=== PATIENT | female | born 1940 | race Caucasian/White ===

== ENCOUNTER 2017-10-23 09:42 | Day surgery (SDC) | payer OTHER, SELFPAY ==
[~2017-10-23] VITALS: Ht 165.1 cm; Wt 64.4 kg
[~2017-10-23 09:42] MED LIST: ALLEGRA ALLERGY PO; ASPI325; ATEN50 PO; ATENOLOL-? DOSE; Acetaminophen-1 EAC1 PO; Atenolol50 MG PO; B Complex1 EAC2 PO; BUME1 PO; CALMAGZIN PO; CHLO25B PO; CREON DR 12,001 EACH PO; Chondroitin Su250 MG PO; DIPATRL; DIPH50 PO; DULO60; FISH1000; FISH1000 PO; FLUTICASONE PROPIONA; FURO100EL; GLUC500 PO; Glucosamine 1,1 EACH PO; HYDACE10B PO; HYDACE5 PO; HYDCHL25 PO; LEVSOD25; LEVSOD50; LOSA50 PO; LOSARTAN POTASS50 MG PO; MECL25 PO; MELO7.5 PO; METO100ER PO; Norco 5-325 Ta1 EACH PO; OXYACE5T PO; Omeprazole20 M1 PO; POTCHL20ER PO; PROC5 PO; TELM80; Zofran Odt4 MG SL; [UNRECOGNIZED DRUG - OTHER]; [UNRECOGNIZED DRUG - OTHER] PO; [UNRECOGNIZED DRUG - REMARK]; [UNRECOGNIZED DRUG - REMARK]
[2017-10-23] MEDS ORDERED: CHOL10002 (10:27)
[2017-10-23] MEDS ORDERED: B-100 COMPLEX100 MG (10:27)
[2017-10-23] MEDS ORDERED: Calcium Magnes1 EAC1 (10:27)
[2017-10-23] MEDS ORDERED: DIPH50 (10:28)
[2017-10-23] MEDS ORDERED: Zantac150 MG (10:28)
[2017-10-23] MEDS ORDERED: PSEU120ER (10:28)
== END 2017-10-23 11:54 | disposition home or self-care (01) ==
LOC: ORSCSDS 09:42
PROVIDERS: Internal Medicine Gastroenterology
PROC: 0D798ZZ Dilation of Duodenum, Via Natural or Artificial Opening Endoscopic (ICD-10-PCS; principal; 2017-10-23 11:15)
PROC: 0DBE8ZX Excision of Large Intestine, Via Natural or Artificial Opening Endoscopic, Diagnostic (ICD-10-PCS; principal; 2017-10-23 11:15)
PROC: 0DB98ZX Excision of Duodenum, Via Natural or Artificial Opening Endoscopic, Diagnostic (ICD-10-PCS; principal; 2017-10-23 11:15)
PROC: 0DBK8ZX Excision of Ascending Colon, Via Natural or Artificial Opening Endoscopic, Diagnostic (ICD-10-PCS; principal; 2017-10-23 11:15)
DX: R63.4 Abnormal weight loss (principal); K21.9 Gastro-esophageal reflux disease without esophagitis; K31.5 Obstruction of duodenum; K29.80 Duodenitis without bleeding; D12.2 Benign neoplasm of ascending colon; K64.8 Other hemorrhoids; K57.30 Diverticulosis of large intestine without perforation or abscess without bleeding; R19.7 Diarrhea, unspecified; I10 Essential (primary) hypertension; E78.5 Hyperlipidemia, unspecified; E03.9 Hypothyroidism, unspecified; Z87.891 Personal history of nicotine dependence; Z79.899 Other long term (current) drug therapy
CPT/HCPCS: 88305; C1726; J7120

== ENCOUNTER → 2017-11-16 | Outpatient (CLI) | payer OTHER ==
[~2017-11-16] MED LIST changes: +B-100 COMPLEX100 MG; +CHOL10002; +Calcium Magnes1 EAC1; +DIPH50; +PSEU120ER; +Zantac150 MG
[2017-11-16 13:03] LABS: Calcium, Blood 8.8 mg/dL (8.5-10.1); Creatinine, Blood 1.25 mg/dL (0.40-1.00); Potassium, Blood 4.2 mmol/L (3.5-5.5)
== END | disposition home or self-care (01) ==
LOC: LAB 11:16 → LAB SHORT 11:16
PROVIDERS: Internal Medicine
DX: N25.9 Disorder resulting from impaired renal tubular function, unspecified (principal)
CPT/HCPCS: 80048

== ENCOUNTER → 2018-05-22 | Outpatient (CLI) | payer OTHER ==
[~2018-05-22] MED LIST changes: +Ferus150 MG; +Flonase 0.05% N16 GM; +Gas-X125 MG PO; -Zantac150 MG; +Zantac150 MG PO
[2018-05-22 19:58] LABS: Influenza A Negative (NEGATIVE); Influenza B Negative (NEGATIVE)
== END | disposition home or self-care (01) ==
LOC: LAB SHORT 17:54 → LAB 17:54
PROVIDERS: Internal Medicine
DX: R09.81 Nasal congestion (principal)
CPT/HCPCS: 87804

== ENCOUNTER → 2019-06-14 | Outpatient (CLI) | payer OTHER ==
[2019-06-14 12:59] LABS: BASOPHILS ABSOLUTE AUTO 0.04 K/mm3 (0.00-0.23); BASOPHILS PERCENT AUTO 1 % (0-2); EOSINOPHILS ABSOLUTE AUTO 0.05 K/mm3 (0.00-0.68); EOSINOPHILS PERCENT AUTO 1 % (0-6); Hematocrit 38.8 % (33.0-51.0); Hemoglobin 13.6 g/dL (11.5-16.0); IMMATURE GRAN ABSOLUTE AUTO 0.01 K/mm3 (0.00-0.10); IMMATURE GRAN PERCENT AUTO 0 % (0-1); LYMPHOCYTES ABSOLUTE AUTO 1.26 K/mm3 (0.84-5.20); LYMPHOCYTES PERCENT AUTO 23 % (21-46); MONOCYTES ABSOLUTE AUTO 0.31 K/mm3 (0.16-1.47); MONOCYTES PERCENT AUTO 6 % (4-13); Mean Corpuscular HGB 29.6 pg (26.0-34.0); Mean Corpuscular HGB Conc 35.1 g/dL (31.5-36.5); Mean Corpuscular Volume 85 fL (80-100); Mean Platelet Volume 9.2 fL (9.1-12.4); NEUTROPHILS ABSOLUTE AUTO 3.89 K/mm3 (1.96-9.15); NEUTROPHILS PERCENT AUTO 70 % (41-73); Platelet Count 378 K/mm3 (150-400); RDW Coefficient Variation 14.5 % (11.7-14.2); RDW Standard Deviation 44.3 fL (35.1-46.3); Red Blood Cell Count 4.59 M/mm3 (3.80-5.20); White Blood Cell Count 5.56 K/mm3 (4.00-11.30)
[2019-06-14 13:09] LABS: Alanine Aminotransfer (ALT/SGP 29 U/L (12-78); Albumin, Blood 4.1 g/dL (3.4-5.0); Albumin/Globulin Ratio 1.1 (0.8-1.8); Alk Phos 79 U/L (40-126); Anion Gap 11 mmol/L (6-16); Aspartate Aminotrans (AST/SGOT 26 U/L (12-37); Bilirubin, Total 0.6 mg/dL (0.1-1.0); Blood Urea Nitrogen 17 mg/dL (8-24); Bun/Creatinine Ratio 11.7 (12.0-20.0); CO2, Blood 26 mmol/L (21-32); Calcium, Blood 9.1 mg/dL (8.5-10.1); Chloride, Blood 92 mmol/L (98-108); Creatinine, Blood 1.45 mg/dL (0.40-1.00); Globulin, Blood 3.7 g/dL (2.2-4.0); Glomerular Filtration Rate 35 (60-); Glucose, Blood 123 mg/dL (70-99); Potassium, Blood 4.1 mmol/L (3.5-5.5); Sodium, Blood 129 mmol/L (136-145); Total Protein, Blood 7.8 g/dL (6.4-8.2)
[2019-06-14 13:13] LABS: Troponin I <0.017 ng/mL (0.000-0.040)
== END | disposition home or self-care (01) ==
LOC: LAB SHORT 12:53 → LAB EV 12:53
PROVIDERS: Physician Assistant Surgical
DX: R07.89 Other chest pain (principal); R06.02 Shortness of breath
CPT/HCPCS: 80053; 83880; 84484; 85025; 85379

== ENCOUNTER 2019-10-03 10:24 | Observation (INO) | payer OTHER ==
[~2019-10-03] VITALS: Ht 165.1 cm; Wt 75.3 kg
[~2019-10-03 10:24] MED LIST changes: -Acetaminophen-1 EAC1 PO; -B-100 COMPLEX100 MG; -CHOL10002; -Calcium Magnes1 EAC1; -LEVSOD50; -METO100ER PO
[2019-10-03 10:45] LABS: BASOPHILS ABSOLUTE AUTO 0.05 K/mm3 (0.00-0.23); BASOPHILS PERCENT AUTO 1 % (0-2); EOSINOPHILS ABSOLUTE AUTO 0.05 K/mm3 (0.00-0.68); EOSINOPHILS PERCENT AUTO 1 % (0-6); Hematocrit 41.8 % (33.0-51.0); Hemoglobin 14.1 g/dL (11.5-16.0); IMMATURE GRAN ABSOLUTE AUTO 0.02 K/mm3 (0.00-0.10); IMMATURE GRAN PERCENT AUTO 0 % (0-1); LYMPHOCYTES ABSOLUTE AUTO 1.82 K/mm3 (0.84-5.20); LYMPHOCYTES PERCENT AUTO 21 % (21-46); MONOCYTES ABSOLUTE AUTO 0.58 K/mm3 (0.16-1.47); MONOCYTES PERCENT AUTO 7 % (4-13); Mean Corpuscular HGB 29.4 pg (26.0-34.0); Mean Corpuscular HGB Conc 33.7 g/dL (31.5-36.5); Mean Corpuscular Volume 87 fL (80-100); Mean Platelet Volume 9.2 fL (9.1-12.4); NEUTROPHILS ABSOLUTE AUTO 6.34 K/mm3 (1.96-9.15); NEUTROPHILS PERCENT AUTO 72 % (41-73); Platelet Count 310 K/mm3 (150-400); RDW Standard Deviation 41.5 fL (35.1-46.3); White Blood Cell Count 8.86 K/mm3 (4.00-11.30)
[2019-10-03 11:02] LABS: Albumin, Blood 3.7 g/dL (3.4-5.0); Bilirubin, Total 0.8 mg/dL (0.1-1.0); Calcium, Blood 9.9 mg/dL (8.5-10.1); Creatinine, Blood 1.58 mg/dL (0.40-1.00); Globulin, Blood 3.7 g/dL (2.2-4.0); Potassium, Blood 3.9 mmol/L (3.5-5.5); Total Protein, Blood 7.4 g/dL (6.4-8.2)
[2019-10-03 11:13] LABS: Source, Urine Clean Catch
[2019-10-03 11:18] LABS: Appearance, Urine Clear (Clear); Bilirubin, Urine Neg (Neg); Blood, Urine Neg (Neg); Color, Urine Yellow (P-Yellow); Glucose Qualitative, Urine Neg (Neg); Ketones, Urine 1+ (Neg); Leukocyte Esterase, Urine Neg (Neg); Nitrite, Urine Neg (Neg); Protein, Urine Neg (Neg); Specific Gravity, Urine 1.015 (1.003-1.022); Urobilinogen, Urine NORM (Normal)
[2019-10-03] MEDS ORDERED: EUTHYROX50 MCG PO (12:51)
[2019-10-03] MEDS ORDERED: METO50ER PO (12:52)
[2019-10-03] MEDS ORDERED: CHLO25B PO (12:53)
[2019-10-03] MEDS ORDERED: POTA10T PO (12:54)
[2019-10-03] MEDS ORDERED: TYLECOD3 PO (12:54)
[2019-10-03] MEDS ORDERED: LOSA50 PO (12:55)
[2019-10-03] MEDS ORDERED: Omeprazole20 M1 PO (12:56)
[2019-10-03] MEDS ORDERED: MAGNESIUM OXID500 MG PO (13:26)
[2019-10-03] MEDS ORDERED: VITAMIN D325 MC3 PO (13:27)
[2019-10-03] MEDS ORDERED: Vitamin B Comple1 EA PO (13:29)
[2019-10-03] MEDS ORDERED: BENADRYL25 MG PO (13:29)
[2019-10-03] MEDS ORDERED: CALCIUM MAGNES1 EACH PO (13:30)
--- NOTE | 2019-10-03 18:41 | NUR ---
SHIFT SUMMARY PT IS A NEW ER ADMISSION THIS AFTERNOON. PT IS ALERT AND ORIENTED AND CALLS APPROPRIATELY. IVF INFUSING WITHOUT DIFFIUCLTY. PT TRIED TO EAT AN EGG AND STARTED VOMITING AND HAVING ABDOMINAL PAIN. THIS RN MEDICATED FOR PAIN AND NAUSEA AND PT REPORTS NO NAUSEA/PAIN SINCE. THIS RN HELD DINNER TRAY AND ENCOURAGED PT TO DO CLEAR LIQUIDS. BP WAS ELEVATED-HYDRALAZINE ADMINISTERED AND PT'S BP DOWN WNL. SEE VITALS RECORDED. NO ACUTE CHANGES AT THIS TIME. PT HAS NO COMPLAINTS OF CHEST PAIN. CALL LIGHT IN REACH. WILL CONTINUE TO MONITOR AND REPORT TO ONCOMING RN.
--- NOTE | 2019-10-03 19:30 | NUR ---
ASSUMED CARE. NATE STILL IS HAVING NAUSEA. WITH MILD DISTENSION, TENDERNESS IN THE LOWER GASTRIC AREA RADIATING THROUGH TO THE BACK. SHE IS AFRAID OF EATING SOMETHING AND GETTING SICK AGAIN. ENCOURAGED HER TO STAY ON A CLEAR LIQUID TILL SHE CAN TOLERATE FOOD WITH OUT GETTING SICK. LUNG SOUNDS ARE CLEAR, HR NORMAL. TELE IN PLACE. TENDERNESS IN BLE DUE TO HISTORY OF VEIN STRIPPING, NO EDEMA. IV INFUSING WELL. WILL CONTINUE TO MONITOR.
[2019-10-04 05:31] LABS: BASOPHILS ABSOLUTE AUTO 0.08 K/mm3 (0.00-0.23); BASOPHILS PERCENT AUTO 1 % (0-2); EOSINOPHILS ABSOLUTE AUTO 0.15 K/mm3 (0.00-0.68); EOSINOPHILS PERCENT AUTO 2 % (0-6); Hematocrit 37.6 % (33.0-51.0); Hemoglobin 12.8 g/dL (11.5-16.0); IMMATURE GRAN ABSOLUTE AUTO 0.01 K/mm3 (0.00-0.10); IMMATURE GRAN PERCENT AUTO 0 % (0-1); LYMPHOCYTES ABSOLUTE AUTO 2.69 K/mm3 (0.84-5.20); LYMPHOCYTES PERCENT AUTO 39 % (21-46); MONOCYTES ABSOLUTE AUTO 0.76 K/mm3 (0.16-1.47); MONOCYTES PERCENT AUTO 11 % (4-13); Mean Corpuscular HGB 29.5 pg (26.0-34.0); Mean Corpuscular Volume 87 fL (80-100); Mean Platelet Volume 9.3 fL (9.1-12.4); NEUTROPHILS ABSOLUTE AUTO 3.29 K/mm3 (1.96-9.15); NEUTROPHILS PERCENT AUTO 47 % (41-73); Platelet Count 303 K/mm3 (150-400); RDW Coefficient Variation 13.2 % (11.7-14.2); RDW Standard Deviation 41.6 fL (35.1-46.3); Red Blood Cell Count 4.34 M/mm3 (3.80-5.20); White Blood Cell Count 6.98 K/mm3 (4.00-11.30)
--- NOTE | 2019-10-04 05:36 | NUR ---
SHIFT SUMMARY: NATE CONTINUES TO HAVE TENDERNESS IN THE LOWER GASTRIC AREA THAT RADIATES TO THE BACK. NAUSEA HAS BEEN OFF AND ON. SHE RECEIVED ZOFRAN BEFORE SHIFT CHANGE AND SHE HAS NOT ASKED FOR MORE SINCE THEN. IV FLUIDS X1 LITER COMPLETED. VS WNL, AFEBRILE. NO BM SO FAR TO SEND SAMPLE. DID SET UP HEATING PAD WHICH HAS HELPED TO RELEIVE THE PAIN. TROPONIN STILL ELEVATED AT 0.108. TEST DID SHOW THAT HER GALLBLADDER IS DISTENDED AND CURRENTLY HAS GALLSTONES. TELE REPORT SINUS IN CHRISTI 60'S. NO OTHER CHANGES TO REPORT.. WILL REPORT TO DAYSHIFT.
[2019-10-04 05:58] LABS: Albumin, Blood 3.2 g/dL (3.4-5.0); Bilirubin, Total 0.7 mg/dL (0.1-1.0); Bun/Creatinine Ratio 11.6 (12.0-20.0); Calcium, Blood 8.8 mg/dL (8.5-10.1); Creatinine, Blood 1.38 mg/dL (0.40-1.00); Globulin, Blood 3.2 g/dL (2.2-4.0); Potassium, Blood 3.7 mmol/L (3.5-5.5); Total Protein, Blood 6.4 g/dL (6.4-8.2)
--- NOTE | 2019-10-04 16:55 | NUR ---
DISCHARGE SUMMARY PATIENT IS PLEASANT ALERT AND ORIENTED INDEPENDENT IN THE ROOM. IV WAS REMOVED. PATIENT WALKED DOWN.
== END 2019-10-04 16:50 | disposition home or self-care (01) ==
LOC: ER 10:24 → MEDS 10:25
PROVIDERS: Emergency Medicine; Nurse Practitioner Acute Care; ADMIT Internal Medicine
DX: R10.12 Left upper quadrant pain (principal); R11.0 Nausea; R07.9 Chest pain, unspecified; I16.0 Hypertensive urgency; E86.0 Dehydration; E03.9 Hypothyroidism, unspecified; R79.89 Other specified abnormal findings of blood chemistry; K80.10 Calculus of gallbladder with chronic cholecystitis without obstruction; I12.9 Hypertensive chronic kidney disease with stage 1 through stage 4 chronic kidney disease, or unspecified chronic kidney disease; N18.3 Chronic kidney disease, stage 3 (moderate); Z87.19 Personal history of other diseases of the digestive system; F32.9 Major depressive disorder, single episode, unspecified; Z66 Do not resuscitate; Z88.5 Allergy status to narcotic agent; Z88.8 Allergy status to other drugs, medicaments and biological substances; Z91.018 Allergy to other foods; R19.7 Diarrhea, unspecified; K21.9 Gastro-esophageal reflux disease without esophagitis; Z79.899 Other long term (current) drug therapy; Z87.891 Personal history of nicotine dependence
CPT/HCPCS: 36415; 71046; 74176; 80053; 81003; 83690; 84484; 85025; 93005; 93010; 94762; 96361; 96372; 96374; 96375; 96376; 99285-25; A9270-GY; G0378; J0360; J1644; J2270; J2405; J7030

== ENCOUNTER → 2020-10-16 | Outpatient (CLI) | payer OTHER ==
[~2020-10-16] MED LIST changes: +BENADRYL25 MG PO; +CALCIUM MAGNES1 EACH PO; +EUTHYROX50 MCG PO; +MAGNESIUM OXID500 MG PO; +METO50ER PO; +POTA10T PO; +TYLECOD3 PO; +VITAMIN D325 MC3 PO; +Vitamin B Comple1 EA PO
[2020-10-16 11:46] LABS: BASOPHILS ABSOLUTE AUTO 0.05 K/mm3 (0.00-0.23); BASOPHILS PERCENT AUTO 1 % (0-2); EOSINOPHILS ABSOLUTE AUTO 0.05 K/mm3 (0.00-0.68); EOSINOPHILS PERCENT AUTO 1 % (0-6); Hematocrit 43.8 % (33.0-51.0); IMMATURE GRAN ABSOLUTE AUTO 0.02 K/mm3 (0.00-0.10); IMMATURE GRAN PERCENT AUTO 0 % (0-1); LYMPHOCYTES ABSOLUTE AUTO 1.64 K/mm3 (0.84-5.20); LYMPHOCYTES PERCENT AUTO 26 % (21-46); MONOCYTES ABSOLUTE AUTO 0.41 K/mm3 (0.16-1.47); MONOCYTES PERCENT AUTO 6 % (4-13); Mean Corpuscular HGB 28.8 pg (26.0-34.0); Mean Corpuscular HGB Conc 34.2 g/dL (31.5-36.5); Mean Corpuscular Volume 84 fL (80-100); Mean Platelet Volume 9.1 fL (9.1-12.4); NEUTROPHILS ABSOLUTE AUTO 4.23 K/mm3 (1.96-9.15); NEUTROPHILS PERCENT AUTO 66 % (41-73); Platelet Count 304 K/mm3 (150-400); RDW Coefficient Variation 13.6 % (11.7-14.2)
[2020-10-16 12:03] LABS: Alanine Aminotransfer (ALT/SGP 27 U/L (12-78); Albumin, Blood 4.3 g/dL (3.4-5.0); Albumin/Globulin Ratio 1.2 (0.8-1.8); Alk Phos 89 U/L (40-126); Anion Gap 10 mmol/L (6-16); Aspartate Aminotrans (AST/SGOT 23 U/L (12-37); Blood Urea Nitrogen 13 mg/dL (8-24); Bun/Creatinine Ratio 8.4 (12.0-20.0); CO2, Blood 32 mmol/L (21-32); Calcium, Blood 9.7 mg/dL (8.5-10.1); Chloride, Blood 97 mmol/L (98-108); Creatinine, Blood 1.55 mg/dL (0.40-1.00); Globulin, Blood 3.7 g/dL (2.2-4.0); Glomerular Filtration Rate 32 (60-); Glucose, Blood 117 mg/dL (70-99); Potassium, Blood 3.5 mmol/L (3.5-5.5); Sodium, Blood 139 mmol/L (136-145)
[2020-10-16 12:08] LABS: Troponin I <0.017 ng/mL (0.000-0.040)
== END | disposition home or self-care (01) ==
LOC: LAB SHORT 11:39 → PLD 11:39
PROVIDERS: Physician Assistant Medical
DX: R07.9 Chest pain, unspecified (principal)
CPT/HCPCS: 80053; 84484; 85025; 85379

== ENCOUNTER → 2021-01-25 | Outpatient (CLI) | payer OTHER | LOC: LAB SHORT 12:45 | PROVIDERS: Internal Medicine Nephrology | DX: N18.30 Chronic kidney disease, stage 3 unspecified (principal); D63.1 Anemia in chronic kidney disease; R76.9 Abnormal immunological finding in serum, unspecified; R94.5 Abnormal results of liver function studies; G60.9 Hereditary and idiopathic neuropathy, unspecified; N25.81 Secondary hyperparathyroidism of renal origin; E78.00 Pure hypercholesterolemia, unspecified; E55.9 Vitamin D deficiency, unspecified; R32 Unspecified urinary incontinence; Z88.5 Allergy status to narcotic agent; Z91.02 Food additives allergy status; Z88.8 Allergy status to other drugs, medicaments and biological substances | CPT/HCPCS: 81050; 82530 ==

== ENCOUNTER → 2021-02-11 | Outpatient (CLI) | payer OTHER | END | disposition home or self-care (01) | LOC: LAB SHORT 08:49 → LAB 08:49 | DX: R10.9 Unspecified abdominal pain (principal) | CPT/HCPCS: 87077; 87086; 87186 ==

== ENCOUNTER 2022-03-04 08:51 | Emergency (ER) | payer OTHER ==
[~2022-03-04] VITALS: Ht 165.1 cm; Wt 68.0 kg
[2022-03-04 09:47] LABS: BASOPHILS ABSOLUTE AUTO 0.04 K/mm3 (0.00-0.23); BASOPHILS PERCENT AUTO 0 % (0-2); EOSINOPHILS ABSOLUTE AUTO 0.08 K/mm3 (0.00-0.68); EOSINOPHILS PERCENT AUTO 1 % (0-6); Hematocrit 37.5 % (33.0-51.0); IMMATURE GRAN ABSOLUTE AUTO 0.06 K/mm3 (0.00-0.10); IMMATURE GRAN PERCENT AUTO 1 % (0-1); LYMPHOCYTES ABSOLUTE AUTO 1.48 K/mm3 (0.84-5.20); LYMPHOCYTES PERCENT AUTO 15 % (21-46); MONOCYTES ABSOLUTE AUTO 1.13 K/mm3 (0.16-1.47); MONOCYTES PERCENT AUTO 11 % (4-13); Mean Corpuscular HGB 29.7 pg (26.0-34.0); Mean Corpuscular HGB Conc 34.7 g/dL (31.5-36.5); Mean Corpuscular Volume 86 fL (80-100); Mean Platelet Volume 9.5 fL (9.1-12.4); NEUTROPHILS ABSOLUTE AUTO 7.16 K/mm3 (1.96-9.15); NEUTROPHILS PERCENT AUTO 72 % (41-73); Platelet Count 296 K/mm3 (150-400); RDW Standard Deviation 44.3 fL (35.1-46.3); Red Blood Cell Count 4.37 M/mm3 (3.80-5.20); White Blood Cell Count 9.95 K/mm3 (4.00-11.30)
[2022-03-04 10:10] LABS: Albumin/Globulin Ratio 0.9 (0.8-1.8); Bilirubin, Total 0.8 mg/dL (0.1-1.0); Bun/Creatinine Ratio 13.6 (12.0-20.0); Calcium, Blood 8.8 mg/dL (8.5-10.1); Creatinine, Blood 1.1 mg/dL (0.40-1.00); Globulin, Blood 3.4 g/dL (2.2-4.0); Potassium, Blood 3.4 mmol/L (3.5-5.5); Total Protein, Blood 6.4 g/dL (6.4-8.2)
[2022-03-04 10:37] LABS: Influenza A, PCR NEGATIVE (NEGATIVE); Influenza B, PCR NEGATIVE (NEGATIVE); Resp Syncytial Virus, PCR NEGATIVE (NEGATIVE); SARS-Cov-2 (COVID-19) PCR, MMC NEGATIVE (NEGATIVE)
[2022-03-04] MEDS ORDERED: EUTHYROX50 MC1 PO (20:03)
[2022-03-04] MEDS ORDERED: METO50ER PO (20:04)
[2022-03-04] MEDS ORDERED: FAMO20 PO (20:04)
[2022-03-04] MEDS ORDERED: IBANDRONATE SO150 MG PO (20:05)
[2022-03-04] MEDS ORDERED: CODACE30 PO (20:05)
[2022-03-04] MEDS ORDERED: FLUTICASONE PRO16 GM (20:05)
== END 2022-03-04 13:18 | disposition home or self-care (01) ==
LOC: ER 08:51
PROVIDERS: Emergency Medicine
DX: R55 Syncope and collapse (principal); B34.9 Viral infection, unspecified; I10 Essential (primary) hypertension; Z20.822 Contact with and (suspected) exposure to COVID-19; Z87.891 Personal history of nicotine dependence
CPT/HCPCS: 0241U; 36415; 71046; 80053; 84484; 85025; 93005; 93010; 99284-25; J7030

== ENCOUNTER 2022-03-08 23:15 | Inpatient (IN) | payer OTHER ==
[~2022-03-08] VITALS: Ht 162.6 cm; Wt 68.0 kg
[~2022-03-08 23:15] MED LIST changes: +CODACE30 PO; +EUTHYROX50 MC1 PO; +FAMO20 PO; +FLUTICASONE PRO16 GM; +IBANDRONATE SO150 MG PO
[2022-03-09 00:23] LABS: Hematocrit 35.8 % (33.0-51.0); Hemoglobin 12.7 g/dL (11.5-16.0); Mean Corpuscular HGB 29.8 pg (26.0-34.0); Mean Corpuscular HGB Conc 35.5 g/dL (31.5-36.5); Mean Corpuscular Volume 84 fL (80-100); Mean Platelet Volume 9.7 fL (9.1-12.4); Platelet Count 416 K/mm3 (150-400); RDW Coefficient Variation 13.8 % (11.7-14.2); RDW Standard Deviation 42.8 fL (35.1-46.3); Red Blood Cell Count 4.26 M/mm3 (3.80-5.20); White Blood Cell Count 31.67 K/mm3 (4.00-11.30)
[2022-03-09 00:46] LABS: Albumin, Blood 2.4 g/dL (3.4-5.0); Albumin/Globulin Ratio 0.6 (0.8-1.8); Bilirubin, Total 0.9 mg/dL (0.1-1.0); Calcium, Blood 9.6 mg/dL (8.5-10.1); Creatinine, Blood 2.08 mg/dL (0.40-1.00); Globulin, Blood 4.1 g/dL (2.2-4.0); Potassium, Blood 3.3 mmol/L (3.5-5.5); Total Protein, Blood 6.5 g/dL (6.4-8.2)
[2022-03-09 00:51] LABS: BAND PERCENT MAN 4 % (0-8); BASOPHILS PERCENT MAN 0 % (0-2); EOSINOPHILS PERCENT MAN 0 % (0-6); LYMPHOCYTES ABSOLUTE MAN 0.95 K/mm3 (0.84-5.20); LYMPHOCYTES PERCENT MAN 3 % (21-46); MONOCYTES ABSOLUTE MAN 0.31 K/mm3 (0.16-1.47); MONOCYTES PERCENT MAN 1 % (4-13); SEG NEUTROPHILS PERCENT MAN 92 % (41-73); TOTAL CELLS COUNTED 100
[2022-03-09 02:39] LABS: Source, Urine Clean Catch
[2022-03-09 02:41] LABS: Bilirubin, Urine Neg (Neg); Blood, Urine 1+ (Neg); Glucose Qualitative, Urine Neg (Neg); Ketones, Urine Neg (Neg); Leukocyte Esterase, Urine 1+ (Neg); Nitrite, Urine Neg (Neg); Protein, Urine 2+ (Neg); Urobilinogen, Urine NORM (Normal)
[2022-03-09 02:57] LABS: Appearance, Urine Clear (Clear); Color, Urine Yellow (P-Yellow)
[2022-03-09 02:58] LABS: Bacteria Mod /hpf; Hyaline Casts 0-2 /lpf (0-2); Red Blood Cells, Urine 0-2 /hpf (0-2); Squamous Epithelial Cells Rare /hpf (Few); White Blood Cells, Urine 0-2 /hpf (0-5)
[2022-03-09 03:12] LABS: Influenza A, PCR NEGATIVE (NEGATIVE); Influenza B, PCR NEGATIVE (NEGATIVE); Resp Syncytial Virus, PCR NEGATIVE (NEGATIVE); SARS-Cov-2 (COVID-19) PCR, MMC NEGATIVE (NEGATIVE)
[2022-03-09 03:13] LABS: Thyroid Stimulating Hormone 2.81 uIU/mL (0.360-4.800)
[2022-03-09 06:31] LABS: Bun/Creatinine Ratio 27.2 (12.0-20.0); Calcium, Blood 9.2 mg/dL (8.5-10.1); Creatinine, Blood 1.91 mg/dL (0.40-1.00); Potassium, Blood 3.1 mmol/L (3.5-5.5)
--- NOTE | 2022-03-09 19:29 | NUR ---
SHIFT REPORT PTN ADMIT FROM ER AT 1010 FOR PNEUMONIA. REPORT GIVEN BY JELLY. IV FELL OUT OF ARM AND WAS REPLACED BY AHRISH HATCH WITH A POWER GLIDE THIS SHIFT. ACTIVITY LEVEL NOT CLEAR, SO BED ALARM WAS PLACED. PTN A&O WITH SOME CONFUSION, PARTICULARLY WHEN SHE FIRST WAKES UP. SHE REPORTED ON INTAKE SCREEN THAT SHE HAS A WALKER AT HOME AND IS SUPPOSED TO USE IT, BUT DOES NOT. TELEMETRY IN PLACE AND IS AFIB AT 104 ON REPORT FROM [employer]. PTN HAD A GROUND LEVEL FALL YESTERDAY AT HOME, HAS A COUPLE SMALL BRUISES TO THE BUTTOCKS AND UPPER L THIGH, SCATTERED BRUISES TO ARMS. CONTINUE TO MONITOR.
--- NOTE | 2022-03-09 23:43 | NUR ---
NOTIFIED BY [employer] @ 2749 THAT PT WAS RUNNING SINUS TACHY WITH HR @ 156 FOR A FEW SECONDS. PT VS TAKEN AND PT SPO2 WAS 80% ON RA. PT WAS REPOSITIONED AND PUT ON 3L/NC AND RT NOTIFIED. PT SPO2 INCREASED TO >93% ON 3L/NC. HOSPITALIST NOTIFIED AND ORDERED TO CONTINUE MONITORING PT HR AND SPO2. WCYOSELIN.
--- NOTE | 2022-03-10 05:25 | NUR ---
SHIFT SUMMARY NOC PT A/O X 3/4. FORGETFUL AT TIMES. PT ON TELE RUNNING AFIB HR @ 105. PT HAD MANY BOUTS OF UNCONTROLLED AFIB RANGING FROM 36BPM-170'S. HOSPITALIST WAS NOTIFIED AND INSTRUCTIONS WERE TO CONTINUE MONITORING AND GIVE IV LOPRESSOR IF RATE IN 130'S-140'S SUSTAINED FOR A COUPLE MINUTES. NO RX WAS NEEDED. PT VSS WERE CHECKED AT THAT TIME AND PT SPO2 WAS @ 80%. 3L/NC O2 WAS APPLIED AND PT MAINTAINING SPO2 92%. RT AND HOSPITALIST WERE NOTIFIED AND AGREED WITH PLACEMENT OF 02 TO MAINTAIN SPO2. PT HAD ONE EPISODE UPON WAKING WHERE THEY WANTED TO GO HOME BUT WAS EASILY REDIRECTABLE ONCE TOLD IN HOSPITAL AND WENT BACK TO BED. PT HAS PG IN BREANNA WHICH DRAWS. PT IS CURRENTLY RESTING WITH BED ALARM ON, BED RAILS UP, BED IN LOWEST POSITION, AND CALL LIGHT WITHIN REACH. WCTM.
[2022-03-10 05:38] LABS: Hematocrit 30.4 % (33.0-51.0); Hemoglobin 10.8 g/dL (11.5-16.0); Mean Corpuscular HGB 29.8 pg (26.0-34.0); Mean Corpuscular HGB Conc 35.5 g/dL (31.5-36.5); Mean Corpuscular Volume 84 fL (80-100); Mean Platelet Volume 9.4 fL (9.1-12.4); Platelet Count 345 K/mm3 (150-400); RDW Standard Deviation 43.2 fL (35.1-46.3); Red Blood Cell Count 3.63 M/mm3 (3.80-5.20); White Blood Cell Count 17.98 K/mm3 (4.00-11.30)
[2022-03-10 06:27] LABS: Bun/Creatinine Ratio 26.7 (12.0-20.0); Calcium, Blood 9.2 mg/dL (8.5-10.1); Creatinine, Blood 1.46 mg/dL (0.40-1.00); Potassium, Blood 3.3 mmol/L (3.5-5.5)
--- NOTE | 2022-03-10 10:48 | NUR ---
Pt. is awake in bed and welcomes my visit. Pts. daughter is present. Pt. is pleasant and displays evidence of being engages and supported, as she already had a contact from her latter-day proof load mechanic. Established rapport, and will remain available to the Pt.
--- NOTE | 2022-03-10 19:27 | NUR ---
SHIFT SUMMARY PTN CONTINUES TO HAVE SOME CONFUSION, ESPECIALLY AFTER SHE FIRST WAKES UP. SHE DID GET OUT OF BED, BUT DID NOT GO FAR BEFORE NOTICED, AND BED ALARM WAS SET. SHE IS A 1-PERSON ASSIST WITH WALKER AND GAIT BELT FOR SAFETY. SHE WAS UP TO THE TOILET A FEW TIMES TODAY WITH ASSIST. PTN WITH TACHYCARDIA UP TO 155, THEN IN THE 130'S, AND THEN DOWN TO 103. NOT SUSTAINED. DR SPIVEY NOTIFIED, NO MEDICATION CHANGES OR ORDERS MADE. IV ANTIBIOTICS GIVEN. LUNG SOUNDS ARE DISTANT, BUT SHE DOES NOT GIVE MUCH EFFORT. COUGH IS PRODUCTIVE. CONTINUE TO MONITOR.
--- NOTE | 2022-03-11 00:51 | NUR ---
NOTIFIED BY [facility]THOD[facility] SMALL BUSINESS OWNER THAT PT HAS BEEN RUNNING HR IN 120'S MOST OF SHIFT AND HAS HAD TWO SEPERATE RUNS IN THE 150'S BETWEEN [id number], AND [id number]. CHARGE NURSE NOTIFIED AND INSTRUCTED TO CALL HOSPITALIST. HOSPITALIST NOTIFIED OF SITUATION AND ORDERED LOPRESSOR IV 5MG. WCTM.
--- NOTE | 2022-03-11 04:34 | NUR ---
SHIFT VALERIA STINSON PT A/O X 3-4. HAS MOMENTS OF CONFUSION UPON AWAKENING BUT REORIENTS QUICKLY. PT IS ON O2 3L/NC SPO2 >94%. PT ON TELE RUNNING AFIB @ 93 BPM. EARLIER IN SHIFT PT WAS RUNNING AFIB IN 120'S UNTIL 2300 WITH TWO 3 MINUTE RUNS IN 150'S. CHARGE NURSE AND HOSPITALIST NOTIFIED. HOSPITALIST ORDERED LOPRESSOR IV 5MG WHICH RETURNED PT HR TO HIGH 90'S-LOW 100'S. PT DENIED C/O OF CP/DISCOMFORT. WCTM. PT USED CALL LIGHT APPROPRIATELY WHEN ELIMINATION NEEDS WERE NEEDED. PT IS CURRENTLY RESTING WITH BED ALARM ON, BED RAILS UP, BED IN LOWEST POSITION, AND CALL LIGHT WITHIN REACH.
[2022-03-11 10:11] LABS: Hematocrit 33.4 % (33.0-51.0); Hemoglobin 11.7 g/dL (11.5-16.0); Mean Corpuscular HGB 29.4 pg (26.0-34.0); Mean Corpuscular Volume 84 fL (80-100); Mean Platelet Volume 9.7 fL (9.1-12.4); Platelet Count 346 K/mm3 (150-400); RDW Coefficient Variation 14.3 % (11.7-14.2); RDW Standard Deviation 43.6 fL (35.1-46.3); Red Blood Cell Count 3.98 M/mm3 (3.80-5.20)
[2022-03-11 10:16] LABS: Magnesium, Blood 1.9 mg/dL (1.6-2.4)
[2022-03-11 10:17] LABS: Albumin, Blood 1.7 g/dL (3.4-5.0); Anion Gap 7 mmol/L (6-16); Blood Urea Nitrogen 24 mg/dL (8-24); Bun/Creatinine Ratio 22.2 (12.0-20.0); CO2, Blood 32 mmol/L (21-32); Chloride, Blood 97 mmol/L (98-108); Creatinine, Blood 1.08 mg/dL (0.40-1.00); Glomerular Filtration Rate 51 (60-); Glucose, Blood 109 mg/dL (70-99); Phosphorus, Blood 4.1 mg/dL (2.5-4.9); Potassium, Blood 3.6 mmol/L (3.5-5.5); Sodium, Blood 136 mmol/L (136-145)
--- NOTE | 2022-03-11 18:31 | NUR ---
SHIFT SUMMARY: PT A&O X4, PLEASANT, TIRED AND SLEP MOST OF THE SHIFT. PT CONTINUES TO HAVE EXCESSIVE COUGHING. PT MEDICATED WITH RUBUTUSSIN 10ML Q6H FOR RELIEF. PT ABLE TO AMBULATE TO THE BATHROOM WITH SBA WITH FWW AND GAIT BELT. TELE NOTIFED OF TACHCARDIA 120-150 DURING AMBULATION SEE TELE NOTES STRIPS SAVED. PT HAD MILD HEADACHE PAIN, RECEVIED TYNEOL 650MG Q6H FOR PAIN. PT O2 TIRATED FRM 3L NC TO 1.5L NC O2 STATS STABLE 92%. PT EVALUATED, PT AMBULATES SBA WITH FWW STEADY GAIT AND STABLE O2 STATS. PT HAD FAMILY VISIT DURING THE SHIFT. PT IN BED WITH CALL LIGHT WITHIN REACH.
[2022-03-12 04:55] LABS: Hematocrit 32.5 % (33.0-51.0); Hemoglobin 11.2 g/dL (11.5-16.0); Mean Corpuscular HGB 29.3 pg (26.0-34.0); Mean Corpuscular HGB Conc 34.5 g/dL (31.5-36.5); Mean Corpuscular Volume 85 fL (80-100); Mean Platelet Volume 9.6 fL (9.1-12.4); Platelet Count 375 K/mm3 (150-400); RDW Coefficient Variation 14.6 % (11.7-14.2); RDW Standard Deviation 44.9 fL (35.1-46.3); Red Blood Cell Count 3.82 M/mm3 (3.80-5.20); White Blood Cell Count 12.67 K/mm3 (4.00-11.30)
[2022-03-12 05:13] LABS: Albumin, Blood 1.7 g/dL (3.4-5.0); Anion Gap 2 mmol/L (6-16); Blood Urea Nitrogen 21 mg/dL (8-24); Bun/Creatinine Ratio 21.4 (12.0-20.0); CO2, Blood 33 mmol/L (21-32); Calcium, Blood 9.4 mg/dL (8.5-10.1); Chloride, Blood 98 mmol/L (98-108); Creatinine, Blood 0.98 mg/dL (0.40-1.00); Glomerular Filtration Rate 57 (60-); Glucose, Blood 104 mg/dL (70-99); Phosphorus, Blood 3.4 mg/dL (2.5-4.9); Potassium, Blood 3.8 mmol/L (3.5-5.5); Sodium, Blood 133 mmol/L (136-145)
--- NOTE | 2022-03-12 06:08 | NUR ---
FOOD TRUCK CATERER SUMMARY: ALERT AND ORIENTED TO SELF. WAS SLEEPING MOST OF BEGINNING OF SHIFT BUT WAS AWAKE FREQUENTLY AFTER 2200 DUE TO FREQUENT COUGHING FITS. GIVEN PRN ROBITUSSIN WITH LITTLE RELIEF. Rx PRN BENZONATE FROM ON-CALL, BUT WAS ALERTED POTENTIAL INTERACTION WITH SOY ALLERGY AND ORDER WAS CHANGED TO ROBITUSSIN WITH CODEINE. PT MORE AWAKE AFTER 0100 AND INCREASINGLY AGITATED. REPEATING THAT SHE WANTS TO GO HOME AND BE WITH HER DAUGHTER AND SISTER. REFUSED TO WEAR SUPPLEMENTAL OXYGEN AND THREATENED TO PULL OUT HER IV IF SHE WAS NOT UNHOOKED FROM FLUIDS. TELE SHOWING A-FIB W/RVR AND TACHY, ESPECIALLY DURING COUGHING FITS. LABS DONE THIS AM WITHOUT RETURN OF CRITICAL VALUES. WILL REPORT TO ONCOMING RN.
--- NOTE | 2022-03-12 06:48 | NUR ---
CALL FROM [employer]. PT TACHY UP INTO 140s MOMENTARILY. SHE IS HAVING A COUGHING FIT AND T/O THE NIGHT HAS BEEN ABLE TO RECOVER TO 90s. WILL REPORT TO ONCOMING RN.
--- NOTE | 2022-03-12 19:25 | NUR ---
SHIFT SUMMARY: PT A/O X 4, STANDBY ASSIST WITH WALKER. PT ABLE TO AMBULATE AND STEADY ON FEET TO BATHROOM. PT CONTINUES TO BE ON RA. PT CONTINUES TO HAVE HARSH COUGH AND ROBITUSSIN WITH CODEINE WAS NOT EFFECTIVE FOR THE FULL 4 HOURS. ORDER RECEIVED FOR PROMETHAZINE W/CODIENE. SOY ALLERGY UPDATED WITH REACTION PT REPORTED DUE TO SOY IN SEVERAL MEDICATIONS. PT CONTINUES TO BE ON TELE WITH NSR WITH TACHY EPISODES IN THE 140'S WHEN UP IN ROOM WHICH RESOLVES ONCE SHE IS RESTING. PT ASYMPTOMAIC WITH EACH EPISODE.
--- NOTE | 2022-03-13 05:17 | NUR ---
FINANCE ASSOCIATE SUMMARY: A&0x3-4. PLEASANT AND COOPERATIVE WITH MOST CARE THIS EVENING. 1PA W/GB&FWW FOR BATHROOM AND AMBULATION NEEDS, BUT DOES NOT CALL FOR ASSISTANCE SO BED ALARM ACTIVATED. COUGH MUCH BETTER CONTROLLED WITH PROMETHAZINE WITH CODEINE THIS EVENING. PRN METOPROLOL 5MG ADMINISTERED FOR SUSTAINED HR >130 ON TELE MONITOR SHOWING AFIB W/ RVR. WILL REPORT TO ONCOMING RN.
--- NOTE | 2022-03-13 08:09 | NUR ---
ELEVATED HR TLEMETRY ANURADHA REPORTED ELEVATED HR 150 BPM. pT UP IN BATHRROM WITH O2. mEDCIATED WITH METORPROLOL 100MG PO. TO EARLY FOR IV LOPRESSOR. AT REST HER HR 106 -110 BPM. cONTINUE POC.
[2022-03-13 08:41] LABS: Hematocrit 30.1 % (33.0-51.0); Hemoglobin 10.6 g/dL (11.5-16.0); Mean Corpuscular HGB 29.9 pg (26.0-34.0); Mean Corpuscular HGB Conc 35.2 g/dL (31.5-36.5); Mean Corpuscular Volume 85 fL (80-100); Mean Platelet Volume 9.4 fL (9.1-12.4); Platelet Count 380 K/mm3 (150-400); RDW Coefficient Variation 14.6 % (11.7-14.2); RDW Standard Deviation 44.5 fL (35.1-46.3); Red Blood Cell Count 3.54 M/mm3 (3.80-5.20); White Blood Cell Count 11.95 K/mm3 (4.00-11.30)
[2022-03-13 08:55] LABS: Bun/Creatinine Ratio 18.5 (12.0-20.0); Calcium, Blood 8.8 mg/dL (8.5-10.1); Creatinine, Blood 0.98 mg/dL (0.40-1.00); Magnesium, Blood 1.8 mg/dL (1.6-2.4); Potassium, Blood 3.7 mmol/L (3.5-5.5)
[2022-03-13 09:14] LABS: BASOPHILS ABSOLUTE MAN 0.11 K/mm3 (0.00-0.23); BASOPHILS PERCENT MAN 1 % (0-2); LYMPHOCYTES ABSOLUTE MAN 0.47 K/mm3 (0.84-5.20); LYMPHOCYTES PERCENT MAN 4 % (21-46); METAMYELOCYTE ABSOLUTE MAN 0.11 K/mm3 (0.00-0.00); METAMYELOCYTE PERCENT MAN 1 % (0-0); MONOCYTES ABSOLUTE MAN 0.59 K/mm3 (0.16-1.47); MONOCYTES PERCENT MAN 5 % (4-13); MYELOCYTE ABSOLUTE MAN 0.23 K/mm3 (0.00-0.00); MYELOCYTE PERCENT MAN 2 % (0-0); TOTAL CELLS COUNTED 100
[2022-03-13 09:15] LABS: NEUTROPHILS ABSOLUTE MAN 10.39 K/mm3 (1.96-9.15); SEG NEUTROPHILS PERCENT MAN 87 % (41-73)
--- NOTE | 2022-03-13 10:55 | NUR ---
COUGH MEDICATED WITH QUIFENSENS WITH CODEINE. THE CODEINE DOES MAKE HER A BIT "LOOPY" BUT HELPS WITH HER COUGH. HUMIDIFIED HER OXYGEN WELL. COUGFH IS TIGHT, DRY. CONTINUE POC.
--- NOTE | 2022-03-13 11:06 | NUR ---
HEART RATE CONTINUED AFIB. RATE NOT WELL CONTROLLED. AT REST 90-106, IF SHE COUGHS 130+. UP IN THE BATHROOM 120-150 BPM. BP STABLE. ONCE AT REST HER HR WILL DECLINE. CONTINUE POC.
--- NOTE | 2022-03-13 16:11 | NUR ---
EVENING NOTE CONTINUED COUGH. PT HAS TRIED THE COUGH MEDICINE WITH CODEINE TWICE TODAY. IT JONO HELPS. UP TO BATHROOM WITH FWW AND SBA. TELEMETRY SHOWS HER AFIB, WITH ACTIVITY, TO 130-150. NOT SUSTAINED. AT REST HER HR IS 100-[address] VILLARREAL HAS ADDED ADDITIONAL TOPROL XL TONIGHT. PT DENIES DIZZINESS OR SOB WITH ACTIVITY EVEN WITH HER HR BEING HIGH. TALKED WITH PT SHE REQUESTED EASIER TO EAT FOOD. CHANGED HER DIET TO MECHANICAL SOFT. SHE'S HAVING A HRD TIME CHEWING AND COUGHING. SHE REQUESTED [employer] FOR BREAKFAST TOMORROW. LARGE GROUP OF FAMILY VISITED THIS AFTERNOON. CONTINUE POC.
--- NOTE | 2022-03-14 04:30 | NUR ---
CONTINUED WITH DRY, HACKING COUGH THIS EVENING, EVEN AFTER RECEIVING PHENERGAN/CODEINE. SPOKE WITH HAIDER WHO WANTED THIS RN TO DISCUSS POSSIBILITIES WITH PHARMACIST AND HAVE RT CONSULT. PER LI WITH RT, SOUNDS CARDIAC RELATED AND LUNGS HAD SOME FINE CRACKLES, IMPROVED FROM COARSE CRACKLES THIS RN AUSCULTATED AT BEGINNING OF SHIFT. RT DID NOT RECOMMEND ALBUTEROL. DEON IN PHARMACY STATED TESSALON PERLES TEND TO BE FIRST LINE OF Tx BUT PT'S LISTED SOY ALLERGY IS A FLAGGED CONTRAINDICATION. UNFORTUNATELY, PT IS A POOR HISTORIAN AND UNABLE TO REMEMBER WHAT HER ALLERGY TO SOY IS. DEON RECOMMENDS HAVING DAY SHIFT RN CONTACT PT FAMILY AND INQUIRE R/T PT Rxn TO SOY. HE STATED AN INHALED STEROID MAY BE BENEFICIAL, TOO, BUT BEING THE PT HAS NOT HAD BNP OR CHF WORKUP, DID NOT WANT TO R/O POSSIBILITY OF CARDIAC AND WANTS TO REFER IT TO THE DAYSHIFT PROVIDER. WILL CONTINUE WITH PHENERGAN WITH RUCHI FOR NOW.
--- NOTE | 2022-03-14 06:25 | NUR ---
MATTRESS STUFFER SUMMARY: A&Ox3-4. PLEASANT AND COOPERATIVE WITH CARE T/O THE NIGHT. CALLS ABOUT 50% OF THE TIME AND IS ABLE TO COMMUNICATE NEEDS EFFECTIVELY. WILL MOVE TO SIDE OF THE BED FOR POSITIONING TO HELP RELIEVE COUGH, AND THIS SETS OFF HER BED ALARM WHICH IS FRUSTRATING FOR HER. AMBULATES WITH SBA AND FWW. PT'S BIGGEST COMPLAINT IS A NAGGING, HACKING, DRY COUGH, IN SPITE OF RECEIVING PHENERGAN W/CODIENE Q4H. RT BELIEVES TO BE CARDIAC AND DID NOT WANT TO ADMINISTER ALBUTEROL; PHARAMCY SUGGESTING A VISCOUS LIDOCAINE OR CHLORASEPTIC SPRAY SINCE PT HAS SOY ALLERGY WHICH FLAGS POTENTIAL INTERACTION WITH TESSALON PERLES. BLEs VERY EDEMATOUS BUT NO PITTING EDEMA. LUNGS COARSE AT BEGINNING OF SHIFT BUT AUSCULTATING FINE CRACKLES EARLY THIS AM. LAST BNP JUNE 2019 AND PT DOES NOT HAVE Dx CHF. TELE FOR AFIB W/RVR. AVERAGE HR PER TELE ~145bpm AND PRN LOPRESSOR ADMINISTERED VIA IV LAST NIGHT. OF NOTE: METOPROLOL DOES HAVE CONTRAINDICATION IN PTS WITH BRONCHOSPASMS. ORDER FOR PRN CEPACOL BUT UNFORTUNATELY HOSPITAL DOES NOT HAVE IT ON HAND. PHARMACIST SUGGESTED CHLORASEPTIC SPRAY. XARELTO RESUMED AND ADDITIONAL AFTERNOON PO DOSE METOPROLOL 50MG INITATED YESTERDAY. POWERGLIDE BREANNA VERY POSITIONAL AND SHE DOES NOT WANT FLUIDS RUNNING SO THESE HAVE NOT BEEN RUNNING FOR TWO DAYS. POWERGLIDE FLUSHES BUT DOES NOT DRAWN OR HAVE BLOOD RETURN. WILL REPORT TO ONCOMING RN.
[2022-03-14 16:03] LABS: Influenza A, PCR NEGATIVE (NEGATIVE); Influenza B, PCR NEGATIVE (NEGATIVE); Resp Syncytial Virus, PCR NEGATIVE (NEGATIVE); SARS-Cov-2 (COVID-19) PCR, MMC NEGATIVE (NEGATIVE)
[2022-03-15 06:03] LABS: BASOPHILS ABSOLUTE AUTO 0.07 K/mm3 (0.00-0.23); BASOPHILS PERCENT AUTO 1 % (0-2); EOSINOPHILS ABSOLUTE AUTO 0.15 K/mm3 (0.00-0.68); EOSINOPHILS PERCENT AUTO 1 % (0-6); Hematocrit 33.8 % (33.0-51.0); Hemoglobin 11.5 g/dL (11.5-16.0); IMMATURE GRAN ABSOLUTE AUTO 0.55 K/mm3 (0.00-0.10); IMMATURE GRAN PERCENT AUTO 4 % (0-1); LYMPHOCYTES ABSOLUTE AUTO 2.22 K/mm3 (0.84-5.20); LYMPHOCYTES PERCENT AUTO 16 % (21-46); MONOCYTES ABSOLUTE AUTO 0.89 K/mm3 (0.16-1.47); MONOCYTES PERCENT AUTO 6 % (4-13); Mean Corpuscular HGB 29.3 pg (26.0-34.0); Mean Corpuscular Volume 86 fL (80-100); Mean Platelet Volume 9.3 fL (9.1-12.4); NEUTROPHILS ABSOLUTE AUTO 10.33 K/mm3 (1.96-9.15); NEUTROPHILS PERCENT AUTO 73 % (41-73); Platelet Count 530 K/mm3 (150-400); RDW Coefficient Variation 14.7 % (11.7-14.2); Red Blood Cell Count 3.93 M/mm3 (3.80-5.20); White Blood Cell Count 14.21 K/mm3 (4.00-11.30)
--- NOTE | 2022-03-15 06:04 | NUR ---
Shift Summary PT AOx4, 1 assist with FWW +GB, bed alarm on. Harsh productive cough, administered PRN Phenegra/Codeine once this shift, pt was able to sleep comfortably t/o most of the night. PG in BREANNA flushes but will not draw blood. On Tele, running AFIB around 100. On 2.5 L O2 via NC. No acute events, pleasant and cooperative with care.
[2022-03-15 08:12] LABS: Bun/Creatinine Ratio 16.5 (12.0-20.0); Calcium, Blood 9.6 mg/dL (8.5-10.1); Creatinine, Blood 0.91 mg/dL (0.40-1.00); Potassium, Blood 3.7 mmol/L (3.5-5.5)
--- NOTE | 2022-03-15 17:49 | NUR ---
DAYSHIFT SUMMARY Telemetry reported no overnight events, but then sustained HR of 170s for 6 minutes this morning when patient was walking to bathroom-back to bed. Later this morning Tele reported patient converted to NSR @80BPM. Patient denied chest pain, only reported SOB with activity & pain in left rib. Sputum culture collected & sent to lab. Continues to have constant hackinh cough, sputum color is brown/red. Oxygen titrated down to 2lpm. SPECIFICATIONS CHECKER evaluated this morning and ordered staff to get patient OOB for all meals, and changed diet to puree. Patient has sores in mouth, and has increased pain when eating. Patient worked with PT/OT, doing well with ambulation. Vitals stable. Will continue plan of care.
[2022-03-16 05:21] LABS: Hematocrit 28.3 % (33.0-51.0); Hemoglobin 9.7 g/dL (11.5-16.0); Mean Corpuscular HGB 29.6 pg (26.0-34.0); Mean Corpuscular HGB Conc 34.3 g/dL (31.5-36.5); Mean Corpuscular Volume 86 fL (80-100); Mean Platelet Volume 9.7 fL (9.1-12.4); Platelet Count 491 K/mm3 (150-400); RDW Coefficient Variation 14.5 % (11.7-14.2); RDW Standard Deviation 44.8 fL (35.1-46.3); Red Blood Cell Count 3.28 M/mm3 (3.80-5.20); White Blood Cell Count 12.74 K/mm3 (4.00-11.30)
--- NOTE | 2022-03-16 05:56 | NUR ---
Shift Summary Pt AOx2-3, woke up with some confusion this morning unable to remember where she was. Easily reoriented. Powerglide is having some trouble flushing, the tip seems to go in at an angle which needs to be flattened out. Pt having some episodes of hacking cough, gave PRN cough medicine twice. Soft BP this AM, 105/41. 1 SBA to BR w FWW, no acute events, pleasant and cooperative with care.
--- NOTE | 2022-03-16 18:33 | NUR ---
SHIFT SUMMARY PT AWAKE AT START OF SHIFT. ASSISTED UP TO BTHRM DURING BS REPORT. PT IS SBA USING FWW. PT ABLE TO TAKE PO MEDS WHOLE WITH WATER; NO DIFFICULTY NOTED. SP EVAL DONE AGAIN AFTER BREAKFAST. DIET REMAINS UNCHANGED. PT TO BE UP IN CHAIR FOR MEALS. PT ALWAYS WANTING TO GO RIGHT BACK TO BED WHEN FINISHED. PT WAS ON 2L O2 AT START OF SHIFT, BUT TITRATED TO RM WITH BIOX STAYING 94-96% ON RA. DR SPIVEY IN TO SEE PT THIS AM; POSSIBLE D/C IN 1-2 DAYS. LUNGS CTA. PER SPEECH EVAL, PT HAS SORE'S IN HER MOUTH, MAKING IT DIFFICULT TO EAT SOME FOODS. PT REPORTED THE SORES ARE UNDER HER DENTURES FROM FOOD AND NOT TAKING HER DENTURES OUT FOR A WHILE WHEN SHE WAS FIRST ILL. PT REPORTS THEM STARTING TO GET BETTER. PT WALKING IN HALLS TODAY WITH THERAPY X2, WELL UP TO BTHRM SEVERAL TIMES DURING THE DAY. RESTING QUIETLY AT THIS TIME. DENIES FURTHER NEEDS. CALL LT IN REACH.
--- NOTE | 2022-03-17 06:07 | NUR ---
Patient resting in bed, no complaints of pain or discomfort.
--- NOTE | 2022-03-17 09:00 | NUR ---
PT NOW NPO- PT HAS A HACKING COUGH, CLEARED WITH A DRINK, SORES IN HER MOUTH ARE VISUALIZED, DR WAS ABLE TO SEE THEM THIS MORNING GOOD ORAL CARE WAS PERFORMED PRIOR TO HIS ROUNDING. PT HAD RECIEVED ALL ORAL MEDICATIONS THIS RN WAITED TO RECHECK VITALS AFTER CARDIZIEM DOSE. SPEACH THERAPY EVALED THE PT AND MADE HER NPO. MD AWARE THIS DOSE CAN NOT BE GIVEN AT THIS TIME. WILL CTM AND MEDICATE WITH IV RATE CONTROL MEDS IF NEEDED. PT SINUS AT 77.
--- NOTE | 2022-03-17 09:30 | NUR ---
CALLED DR SPIVEY- PT HAD AN EPISODE OF INCONTINENET STOOL AND URINE. STOOL WAS MUCUSY AND GREEN WITH BLACK JELLYLIKE SPLOTCHES IN IT. CALLED DR SPIVEY AND RECIEVED AN ORDER FOR JAROD, SAMPLE SENT TO THE LAB.
--- NOTE | 2022-03-17 11:38 | NUR ---
RECIEVED A CALL FROM TELE- PT HAD A RUN OF 13 BEATS OF SVT. APON EVALUATING THE PT IT WAS NOTED THAT SHE WAS HAVING A TERRIBLE COUGHING FIT. CALLED [facility] TO SEE IF THE PT HAS BEEN CLEARD TO HAVE PO COUGH SYRUP.
--- NOTE | 2022-03-17 11:56 | NUR ---
RECIEVED A CALL BACK FROM [facility]- [place] TO GIVE PO MEDS WHOLE WITH WATER.
--- NOTE | 2022-03-17 12:00 | NUR ---
CALLED DR SPIVEY- PT HAD A RUN OF SVT THAT COINCIDED WITH A COUGHING FIT. OK TO GIVE AM DOSE OF METOPROLOL.
[2022-03-17 13:38] LABS: Stool Occult Blood Guaiac 1 Neg (Neg)
--- NOTE | 2022-03-17 18:27 | NUR ---
SHIFT SUMMARY- PT ALERT AND ORIENTED. PT HAS BEEN A 1PA TO THE BATHROOM T/O THE SHIFT. SHE HAS HAD A HACKING COUGH, CAUSING COUGHING FITS MAKING THE PT BREATHE HEAVILY TO RECOVER. PT HAS SORES IN HER MOUTH AND KEEPS HER DENTURES OUT UNTIL FOOD ARRIVES. RECIEVED A NEW ORDER FOR TESSALON PEARLS AND IT SEEMS TO HAVE REDUCED THE PT COUGH, SHE IS STILL COUGHING BUT IT IS LESS FREQUENT, AND SHE WAS ABLE TO COUGH UP A LITTLE MUCUS, SHE SWALLOWED IT BUT SHE DID COUGH IT UP. PT IS CURRENTLY SITTING UP IN THE CHAIR EATING HER DINNER ON ROOM AIR WITH NO S&S OF DISTRESS NOTED. WILL CTM AND PASS ON TO NIGHT RN IN BEDSIDE REPORT.
--- NOTE | 2022-03-18 06:48 | NUR ---
ALERT AND ORIENTED X 3, TELE SR W/ PAC'S, BREANNA POWERGLIDE THAT DOES NOT DRAW, INCONTINENT OF BOWEL AND BLADDER, TESSLON PEARLS AND PHENEGREAN W/ CODEINE GIVEN FOR COARSE COUGH.
[2022-03-18] MEDS ORDERED: ACET325 PO (13:08)
[2022-03-18] MEDS ORDERED: BENZ100A PO (13:11)
[2022-03-18] MEDS ORDERED: GUAI600T33 PO (13:12)
[2022-03-18] MEDS ORDERED: CEFD300 PO (13:15)
--- NOTE | 2022-03-18 16:31 | NUR ---
PT RESTING QUIETLY AT START OF SHIFT. WOKE EASILY FOR CARE. PT ASSISTED UP TO CHAIR FOR BREAKFAST; SBA. PT REMAINED IN CHAIR FOR A WHILE TODAY, BEFORE GOING BACK TO BED. PT ON 2.5L O2 AT START OF SHIFT WITH BIOX AT 100%. PT PLACED TO RA WITH BIOX AT 97% ON RA. OCCASSIONAL NPC; TESSALON GIVEN PER EMAR. PT WANTING TO GO HOME TODAY. DR SPIVEY NOTIFIED AND CAME TO TO TALK WITH PT AND LULUUSS PLAN OF CARE. D/C ORDERS PLACED. PT TO CONTINUE ON PO ABX, PER ORDERS. PT VERBALIZED UNDERSTANDING. PT CALLED SON FOR MANUAL ARTS TEACHER. PT MOSTLY ABLE TO DRESS HERSELF. PT'S SON HERE TO ASSIST WITH BELONGINGS AND PT THEN ASSISTED OUT TO SON'S CAR VIA W/C BY JUVENCIO.
--- NOTE | 2022-03-18 16:38 | NUR ---
PT HAD REPORTED OCCASSIONAL LIGHT HEADEDNESS WHEN STANDING AT TIMES. DR SPIVEY ASKED PT ABOUT FLUID INTAKE; PT REPORTED NOT DRINKING MUCH WATER AND NOT ENOUGH. PT ENCOURAGED TO INCREASE WATER INTAKE AT HOME. PT VERBALIZED UNDERSTANDING.
== END 2022-03-18 15:20 | disposition home health service (06) | DRG 871 ==
LOC: ER 23:15 → ERHOLD 03-09 03:19 → MEDS 03-09 03:19
PROVIDERS: Family Medicine; Internal Medicine; Student in an Organized Health Care Education/Training Program; ADMIT Internal Medicine
DX: A41.9 Sepsis, unspecified organism (principal); G93.41 Metabolic encephalopathy; J18.9 Pneumonia, unspecified organism; J96.01 Acute respiratory failure with hypoxia; J44.0 Chronic obstructive pulmonary disease with (acute) lower respiratory infection; N17.9 Acute kidney failure, unspecified; E87.20 Acidosis, unspecified; E87.1 Hypo-osmolality and hyponatremia; Z20.822 Contact with and (suspected) exposure to COVID-19; F32.A Depression, unspecified; E03.9 Hypothyroidism, unspecified; R65.20 Severe sepsis without septic shock; I12.9 Hypertensive chronic kidney disease with stage 1 through stage 4 chronic kidney disease, or unspecified chronic kidney disease; N18.30 Chronic kidney disease, stage 3 unspecified; E87.6 Hypokalemia; I48.91 Unspecified atrial fibrillation; Z96.611 Presence of right artificial shoulder joint; Z87.11 Personal history of peptic ulcer disease; Z90.710 Acquired absence of both cervix and uterus; Z90.722 Acquired absence of ovaries, bilateral; Z98.51 Tubal ligation status; Z90.89 Acquired absence of other organs; Z90.49 Acquired absence of other specified parts of digestive tract; Z88.8 Allergy status to other drugs, medicaments and biological substances; Z91.018 Allergy to other foods; Z87.891 Personal history of nicotine dependence; Z79.01 Long term (current) use of anticoagulants; Z79.899 Other long term (current) drug therapy; W18.39XA Other fall on same level, initial encounter
CPT/HCPCS: 0241U; 36415; 51701; 70450; 71045; 71046; 71260; 72170; 72220; 74230; 80048; 80053; 80069; 81001; 82272; 83605; 83735; 83880; 84145; 84443; 85025; 85027; 87040; 87070; 87077; 87086; 87186; 87205; 92526; 92610; 92611; 93005; 93010; 93306; 94760; 96365-59; 96366-59; 96368; 97110; 97116; 97129; 97130; 97162; 97165; 97530; 97535; 99285-25; A9270; C1751; J0456; J0696; J1650; J1940; J2543; J3370; J7030; J7040; J7050; Q9967